=== PATIENT | female | born 1960 | race Caucasian/White ===

== ENCOUNTER 2019-02-11 11:28 | Inpatient (IN) ==
--- NOTE | 2019-02-11 12:42 | History & Physical Report ---
Date of Service February 11, 2019 Assessment & Plan (1) Chest pain: 58 y/o F sent to ED after having a positive stress test which was done for having exertional chest pain and dyspnea Exertional chest pain and dyspnea with positive stress test - keep on tele, - check troponin and trend - consult cardiology for [facility] - add aspirin. will need b sarahi and statin HTN - continue home dose losartan/HCTZ - 12.5/50mgs. Fatty liver - outpatient monitoring and lifestyle changes DVT proph - ambulation full code heart healthy diet (2) Positive cardiac stress test: (3) Fatty liver: (4) Sleep apnea: (5) Hypertension: History of Present Illness Chief Complaint: chest pain Primary Care Provider: Cely Duong MD 58 y/o F sent from cardiology office after having had a positive stress test associated with chest pain. Patient had been having chest tightness associated with shortness of breath with feeling of throat closing and arm hurting for few wks and so underwent stress test. Today at cardiology office - patient started to have chest pain while undergoing stress test and had positive EKG findings. Stress test was stopped and she was given SL nitroglycerine which relieved her chest pain. At the time of my exam - patient denied any chest pain, shortness of breath, diaphoresis, palpitation. Allergies Allergy/AdvReac Type Severity Reaction Status Date / Time lisinopril AdvReac Intermediate Cough Unverified 02/11/19 12:38 Home Medications Home Medications Medication Instructions Recorded Confirmed Type Alive Once Daily Women 50 Plus 1 tab PO QAM 02/11/19 02/11/19 History Heparin IV Low Dose *NO* Bolus 1 ea IV Q15H 1 Days #1 amp 02/11/19 Rx aspirin [Ecotrin Low Strength] 81 mg PO QAM 30 Days #30 tab 02/11/19 Rx atorvastatin 80 mg PO QAM 30 Days #60 tab 02/11/19 Rx garlic 2,000 mg PO DAILY 02/11/19 02/11/19 History losartan-hydrochlorothiazide 1 tab PO QAM 02/11/19 02/11/19 History metoprolol tartrate 25 mg PO BID 30 Days #60 tab 02/11/19 Rx omega 8-ytn-bzd-fish oil [Fish Oil] 1 cap PO QAM 02/11/19 02/11/19 History Past Med/Surg History Medical History (Updated 02/11/19 @ 12:43 by Cely Duong MD) Fatty liver Hypertension Sleep apnea Surgical History (Updated 02/11/19 @ 12:40 by Cely Duong MD) History of tonsillectomy S/P ACL repair Family History (Updated 02/11/19 @ 12:42 by Cely Duong MD) Mother Hypertension Father Prostate cancer Social History (Updated 02/11/19 @ 12:41 by Cely Duong MD) Preferred Language: Bel[place]an Communication Ability: Effective Anatomic Pathology Manager Required: No Beliefs That Will Affect Care: None marital status: Current Living Situation: Spouse and Family Feels Safe at Home: Yes Smoking Status: Never smoker Hx Alcohol Use: Yes Hx Substance Use: No Review of Systems Constitutional: no fever and no chills Eyes: no diplopia, no discharge and no tunnel vision Ear, Nose, Mouth, Throat: no ear pain, no nasal discharge, no mouth lesions and no dental pain Respiratory: no cough and no hemoptysis Cardiovascular: as per Subjective / HPI Gastrointestinal: no abdominal pain, no bloating and no nausea Genitourinary: no urinary frequency, no urinary incontinence and no decreased urination Musculoskeletal: no back pain and no radicular pain Integumentary: no rash Neurologic: no gait abnormality and no paralysis Psychiatric: no behavioral changes Endocrine: no polydipsia and no polyphagia Hematologic / Lymphatic: no coagulopathy Allergy / Immunological: no lip swelling, no tongue swelling and no cough Physical Exam Constitutional: WD/WN, vitals as above Eyes: PERRL, conjunctivae normal, anicteric sclerae ENMT: external ear and nose normal, oropharynx normal Neck: trachea midline, no thyromegaly Respiratory: normal respiratory effort, lungs clear to auscultation Cardiovascular: RRR, no murmur, no edema Gastrointestinal (Abdomen): normal bowel sounds, soft, nontender, no hepatosplenomegaly Musculoskeletal: no cyanosis or clubbing, extremities motor strength 5/5 Skin: no rashes, warm and dry Neurologic: patellar DTR's 2+ bilat, sensation intact Psychiatric: A+Ox3, euthymic affect Lymphatic: + cervical lymphadenopathy Results & Data Vital Signs (Past 12 Hours) Vital Signs Temp Pulse Resp BP Pulse Ox 02/11/19 11:25 36.7 C 79 14 161/84 H 98 02/11/19 11:20 98
[2019-02-11 13:25] LABS: Basophils # (auto) 0.06 K/uL (0-0.2); Basophils % (auto) 0.5 %; Eosinophils # (auto) 0.18 K/uL (0-0.5); Eosinophils % (auto) 1.6 %; Hematocrit (blood only) 44.8 % (37-47); Immature Granulocytes # (auto) 0.04 K/uL (0.00-0.02); Immature Granulocytes % (auto) 0.4 %; Lymphocytes # (auto) 2.38 K/uL (1.2-3.4); Lymphocytes % (auto) 21.3 %; Mean Corpuscular Hemoglobin 29.8 pg (25-34); Mean Corpuscular Hgb Conc 33.5 g/dL (32-36); Mean Corpuscular Volume 89.1 fL (80-100); Mean Platelet Volume 11.7 fL (7.4-10.4); Monocytes # (auto) 0.68 K/uL (0.11-0.59); Monocytes % (auto) 6.1 %; Neutrophils # (auto) 7.83 K/uL (1.4-6.5); Neutrophils % (auto) 70.1 %; Platelet Count 240 K/uL (130-400); RDW Coefficient of Variation 13.5 % (11.5-14.5); Red Blood Count 5.03 M/uL (4.2-5.4); White Blood Count 11.17 K/uL (4.8-10.8)
[2019-02-11 13:32] LABS: BUN Creatinine Ratio 14.5 (10-20); Calcium 9.1 mg/dl (8.5-10.1); Est GFR (African American) 68.3; Est GFR (Non-African American) 58.9; Potassium 3.8 mmol/L (3.5-5.1)
[2019-02-11] MEDS ORDERED: HydrALAZINE HCL 20 MG/ML VIAL IV STA (13:34)
[2019-02-11] MEDS ORDERED: HydrALAZINE HCL 20 MG/ML VIAL ONE (13:36)
[2019-02-11] MEDS: LOSARTAN POTASSIUM 50 MG TAB PO SCH (13:49)
--- NOTE | 2019-02-11 13:51 | Cardiology Consultation ---
Date of Consultation February 11, 2019 Assessment & Plan (1) Positive cardiac stress test: 2. Typical angina 3. Hypertension 4. Morbid obesity/obstructive sleep apnea Patient with typical angina and high risk risk stress test findings. Agree with proceeding with cardiac catheterization. Discussed risk, benefits, alternatives of procedure with patient and she is willing to proceed. Plan to perform via right radial artery. Further recommendations pending findings of angiography. In the interim please keep n.p.o.. Given p.o. losartan and IV hydralazine for hypertension. History of Present Illness History of Present Illness Mrs. Monroy is a very pleasant 58-year-old woman with a history of hypertension here today in the setting of abnormal stress test. Patient reports chest discomfort radiating up into her neck intermittently since November. Reports having approximately 5 such episodes all occurring during periods of stress or with exertion. Due to symptoms was referred for exercise stress echo with Dr. Valentin today. Early in test developed her prior chest pain with ST depressions global LV dysfunction with more notable hypokinesis in mid to apical anterior, septal and entire apex. Referred directly from cardiology office to ED due to high risk test. At present patient chest pain-free. Hypertensive with systolic blood pressures up into the 190s. Patient with no prior cardiac history. No family history of coronary disease. Lifelong non-smoker. Allergies Allergy/AdvReac Type Severity Reaction Status Date / Time lisinopril AdvReac Intermediate Cough Unverified 02/11/19 12:38 Home Medications Home Medications Medication Instructions Recorded Confirmed Type garlic 2,000 mg PO DAILY 02/11/19 02/11/19 History losartan-hydrochlorothiazide 1 tab PO QAM 02/11/19 02/11/19 History mv-mn-folic ac-vit K-herb 289 1 tab PO QAM 02/11/19 02/11/19 History [Alive Once Daily Women 50 Plus] omega 0-cyx-upp-fish oil [Fish Oil] 1 cap PO QAM 02/11/19 02/11/19 History Patient History Medical History (Updated 02/11/19 @ 12:43 by eCly Duong MD) Fatty liver Hypertension Sleep apnea Surgical History (Updated 02/11/19 @ 12:40 by Cely Duong MD) History of tonsillectomy S/P ACL repair Family History (Updated 02/11/19 @ 12:42 by Cely Duong MD) Mother Hypertension Father Prostate cancer Social History (Updated 02/11/19 @ 12:41 by Cely Duong MD) Preferred Language: Uzbek marital status: Feels Safe at Home: Yes Smoking Status: Never smoker Hx Alcohol Use: No Hx Substance Use: No Review of Systems Review of Systems: All systems reviewed & are unremarkable except as noted in HPI & below Physical Exam Physical Exam: General: Comfortable, no acute distress, obese HEENT: Sclerae anicteric, mucous membranes moist Lungs: Clear to auscultation bilaterally, no rhonchi or wheezes Cardiac: Regular rate and rhythm, no murmurs. No JVD. Abdomen: Soft, nontender, nondistended, positive bowel sounds. Extremities: Warm, well perfused, no edema. 2+ radial pulses Skin: No rashes or lesions. Neuro: Nonfocal Psych: Alert orient x3, normal affect and mood Results & Data Vital Signs (Past 12 Hours) Vital Signs Temp Pulse Pulse Resp BP BP Pulse Ox 02/11/19 13:17 18 195/126 H 95 02/11/19 13:00 79 22 187/115 H 99 02/11/19 11:25 98.1 F 79 14 161/84 H 98 02/11/19 11:20 98 PG Care Time/CCT Total # of Minutes Spent Total Time Spent with Patient: Total time spent is greater than 50% in coordin ation of care (as documented) at patient's floor/unit and/or counseling patient:
[2019-02-11] MEDS ORDERED: MIDAZOLAM HCL 1 MG/ML 2ML VIAL ONE (14:45)
[2019-02-11] MEDS ORDERED: NITROGLYCERIN/D5W 100MCG/ML 20ML SYR ONE (14:45)
[2019-02-11] MEDS ORDERED: HEPARIN (PORCINE) 1000 UNIT/ML 10 ML (CATH LAB USE ONLY) ONE (14:45)
[2019-02-11] MEDS ORDERED: NiCARDipine HCL INJ 2.5 MG/ML 10 ML AMP ONE (14:45)
[2019-02-11] MEDS ORDERED: fentaNYL citrate 100 MCG/2 ML VIAL ONE (14:45)
--- NOTE | 2019-02-11 15:29 | Post Anesthesia Assessment ---
Date of Service February 11, 2019 Post Sedation Assessment Vital Signs Temp Pulse Pulse Resp BP BP Pulse Ox 02/11/19 13:17 18 195/126 H 95 02/11/19 13:00 79 22 187/115 H 99 02/11/19 11:25 98.1 F 79 14 161/84 H 98 02/11/19 11:20 98 Recovery Score Activity: Moves 4 extremities Respiration: Deep Breath/Cough Circulation: +/-20% PreAnes Value Consciousness: Fully Awake Oxygen Saturation: O2 needed for >90% Discharge Sedation Level of Care: Fast Track Phase II Post Sedation Plan On clinical assessment, the patient appears to have tolerated the sedation without complications. Patient is recovering as anticipated. Patient will continue to be monitored by nursing and may be discharged when sedation discharge criteria are met per below protocol. Upon Completions of procedure up to 15 minutes continue every 5 minute vital signs and the P.A.R. score; then discharge to a Phase I or Fast Track to Phase II per the following guidelines: * Discharge Patient to appropriate Phase II area if PAR is 8 or greater or return to pre- procedure baseline. The post - procedure orders will be as directed. * If PAR score is less than 8 or not return to pre-procedure baseline then patient will follow Phase I monitoring till PAR is reached for Phase II. The Phase I may be done in procedure room or may call to secure a Phase I area. * If naloxone or flumazenil are used for reversal, hold in Phase I for continued monitoring from when last reversal dose was given for a minimum of 60 minutes or longer pending the nurse and/or physician discretion of patient condition before discharge to Phase II. Please call the Sedation Physician to re-evaluate and complete post-note for discharge to Phase II area. Do NOT discharge from procedure sedation or Phase 1 until post- sedation evalu ation note is complete by procedure /sedation MD Sedation Discharge Instructions to be given to the patient at discharge to home.
--- NOTE | 2019-02-11 15:35 | Cardiac Catheterization ---
[facility] Data: [employer] Cardiac Status Clinical evaluation leading to the procedure CAD Presenation: Unstable angina Anginal Classification: CCS III Heart Failure: No Cardiogenic Shock within 24 Hours: No Cardiac Arrest within 24 Hours: No Imaging Studies Past 6 Months: Yes Stress Studies Past 6 Months: Yes Stress Echocardiogram: Yes - Positive and Risk/Extent of Ischemia (High) Diagnostic Physicians Name: Real Price MD Closure Device Percutaneous Entry Location: Radial Closure Device: Radial Band Recommendations: CABG Intraprocedure Events Significant Disection: No Perforation: No Cardiac Cath Procedure Full Procedure Date February 11, 2019 Pre-Procedure Diagnosis Pre-Procedure Diagnosis: Acute Coronary Syndrome and Angina AUC Score AUC Score: 7 Post-Procedure Diagnosis Post-Procedure Diagnosis: Severe CAD and Normal Intracardiac Pressures Procedure(s) Performed Procedure(s) Performed: Coronary Angiography and Left Heart Cath Cloth Brushing And Sueding Supervisor Real Price MD Transportation Operations Manager(s) Madelin Estimated Blood Loss Estimated Blood Loss: 5 Medication(s) Medication(s): Fentanyl, Heparin, Lidocaine 1%, Nicardipine, Nitroglycerin and Versed Summary of Findings Indication: Accelerating angina, high risk stress test Access: 6 Fr slender right radial artery Catheters: [place] Findings: LM -80 to 90% mid focal stenosis LAD -medium caliber, 30% mid segment disease, distal luminal irregularities with sluggish flow to the apex Circumflex -medium caliber vessel, 80% mid to distal disease prior to medium caliber left PLB RCA -dominant, large caliber, 40% proximal disease. Large PDA without significant disease. LVEDP -11 Arterial Closure: TR band Summary: 1. Severe coronary artery disease -80 to 90% mid left main 80 to 90% mid to distal circumflex -40% proximal RCA 2. Normal intracardiac filling pressure Recommendations: Discussed with cardiac surgery at [facility]. We will transfer for CABG evaluation. Hemodynamics Rest Ao:: 96/48/78 Final Ao: 122/68/114 LV: 106/11 Recommendations Recommendations: CABG Specimens Specimens: None Radiation Exposure (mGy) 1190 Contrast (mls) 55 Fluids (cc crystalloids) Fluids (cc crystalloids): 80 Drains Drains: None Anesthesia Moderate Procedural Complication(s) None Disposition PCU I attest to the content of the Intraoperative Record and any orders documented therein. Any exceptions are noted below. [id number] Card Cath Procedure Codes Cardiac Catheterization Procedure 1: Cardiovascular Cath Procedures: 72430 Coronaries and LHC (+/-LV) Moderate Sedation Procedure 1: Sedation/Anesthesia: 45498 Mod Sedation by the same physician;Init15 Min Child Age 5 & Up PG Care Time/CCT Total # of Minutes Spent Total Time Spent with Patient: Total time spent is greater than 50% in coordination of care (as documented) at patient's floor/unit and/or counseling patient:
[2019-02-11] MEDS ORDERED: Heparin IV Low Dose *NO* Bolus IV SCH (15:52)
[2019-02-11] MEDS ORDERED: ACETAMINOPHEN 325 MG TAB PO PRN ×2 (15:52→16:11)
[2019-02-11] MEDS ORDERED: ONDANSETRON INJ 2 MG/ML 2 ML VIAL IV PRN ×2 (15:52→16:11)
[2019-02-11] MEDS ORDERED: SODIUM CHLORIDE 0.9% 1000ML 1,000 ML IV SCH (16:00)
[2019-02-11] MEDS ORDERED: MoRPHine SULFATE 2 MG/ML CARP IV PRN (16:11)
[2019-02-11] MEDS ORDERED: NITROGLYCERIN SL 0.4 MG/TAB TAB SL PRN (16:11)
[2019-02-11] MEDS ORDERED: LORazepam 0.5 MG TAB PO STA (16:12)
[2019-02-11] MEDS: ASPIRIN 81 MG ECTAB PO SCH (16:59)
[2019-02-11] MEDS: ATORVASTATIN 40 MG TAB PO SCH (16:59)
[2019-02-11] MEDS: HEPARIN SODIUM/DEXTROSE 25,000 UNITS/500 ML BAG IV SCH (17:33)
[2019-02-11] MEDS: METOPROLOL TARTRATE 25 MG TAB PO SCH (20:32)
[2019-02-11 22:47] LABS: Partial Thromboplastin Ratio 1.2; Partial Thromboplastin Time 31.2 Seconds (21.0-31.0)
[2019-02-12] MEDS ORDERED: HEPARIN IV BOLUS 4,500 UNITS in SYRINGE 0 ML IV ONE ×2 (00:45→09:30)
[2019-02-12 07:12] LABS: Partial Thromboplastin Ratio 1.5; Partial Thromboplastin Time 39.3 Seconds (21.0-31.0)
[2019-02-12] MEDS: LOSARTAN POTASSIUM 50 MG TAB PO SCH (08:27)
[2019-02-12] MEDS: ASPIRIN 81 MG ECTAB PO SCH (08:28)
[2019-02-12] MEDS: METOPROLOL TARTRATE 25 MG TAB PO SCH (08:28)
[2019-02-12] MEDS: ATORVASTATIN 40 MG TAB PO SCH (08:28)
[2019-02-12] MEDS ORDERED: LOSARTAN/HCTZ 50/12.5MG TAB PO SCH (09:00)
[2019-02-12] MEDS ORDERED: ASPIRIN 81 MG ECTAB PO SCH (09:00)
[2019-02-12 11:10] VITALS: BP 144/84; PULSE 74; TEMP 98.4; O2SAT 96
--- NOTE | 2019-02-12 11:32 | Discharge Summary ---
Date of Service February 12, 2019 Admission HPI Per Admitting Provider 58 y/o F sent from cardiology office after having had a positive stress test associated with chest pain. Patient had been having chest tightness associated with shortness of breath with feeling of throat closing and arm hurting for few wks and so underwent stress test. Today at cardiology office - patient started to have chest pain while undergoing stress test and had positive EKG findings. Stress test was stopped and she was given SL nitroglycerine which relieved her chest pain. At the time of my exam - patient denied any chest pain, shortness of breath, diaphoresis, palpitation. Principal Diagnosis Severe CAD Discharge Exam Constitutional WD/WN, vitals as above Respiratory normal respiratory effort, lungs clear to auscultation Cardiovascular RRR, no murmur, no edema Gastrointestinal (Abdomen) normal bowel sounds, soft, nontender, no hepatosplenomegaly Skin no rashes, warm and dry Discharge Data Allergies Allergy/AdvReac Type Severity Reaction Status Date / Time lisinopril AdvReac Intermediate Cough Unverified 02/11/19 12:38 Consultations 02/11/19 16:11 Consult Cardiology Routine Consult Cardiology Routine 02/11/19 16:29 Burn CD for patient Stat Procedures Performed Operation Date: 02/11/19 14:00 Actual Procedures p Cath, Left with Cors and Vent - Ezio Price MD s Cineradiography w/Routine Exam - Ezio Price MD Ordered Studies 02/11/19 14:30 CL Cath Imgs for PACS use only Routine Hospital Course (1) Chest pain: 58 y/o F sent to ED after having a positive stress test which was done for having exertional chest pain and dyspnea who underwent LHC on 02/11/19. Severe CAD s/p LHC 02/11/[address] Price - [facility] - -80 to 90% mid left main 80 to 90% mid to distal circumflex -40% proximal RCA - Kept on Tele overnight. Troponin came back negative. - added aspirin, b sarahi and statin. - [place] [facility] [place]. HTN - continue home dose losartan/HCTZ - 12.5/50mgs. Fatty liver - outpatient monitoring and lifestyle changes DVT proph - ambulation full code heart healthy diet (2) Positive cardiac stress test: (3) Fatty liver: (4) Sleep apnea: (5) Hypertension: Total Time Total Time Spent Total Time Spent (In Minutes): 35 min Discharge Plan Discharge Items Patient Disposition: Transfer Acute Care Hospital Reason For Visit: POSITIVE STRESS TEST WITH CHEST PAIN Discharge Diagnosis: Severe coronary artery disease Activity: Per Instructions section Activity Comment: bedrest while [place]route [place] [facility] [place]-emergency contact: Primary Care Provider Call non-emergency contact if: you have any medication questions Follow-up/Referrals: Cely Duong MD [Primary Care Provider] - Diet: Heart Healthy Addtl Attending Provider Instructions: follow with PCP after [place] [facility] [place] Pending Studies at Discharge: No Stand-Alone Forms: My [facility] Skilled Items Patient informed of condition?: Yes DNR: No Discharge Level of Care: Other Communicable Disease: No Discharge Prognosis: Stable Lines: Peripheral IV Urinary Catheter: No Medications and DC Order Prescriptions: New atorvastatin 40 mg Tablet 80 mg PO QAM 30 Days Qty: 60 RF: 0 aspirin [Ecotrin Low Strength] 81 mg Tablet,Delayed Release (Dr/Ec) 81 mg PO QAM 30 Days Qty: 30 RF: 0 Heparin Iv Low Dose *No* Bolus 1 ea IV Q15H 1 Days Qty: 1 RF: 0 metoprolol tartrate 25 mg Tablet 25 mg PO BID 30 Days Qty: 60 RF: 0 Continued losartan-hydrochlorothiazide 50-12.5 mg tablet 1 tab PO QAM RF: 0 garlic Tablet 2,000 mg PO DAILY RF: 0 omega 0-apd-csl-fish oil [Fish Oil] 1,000 mg (120 mg-180 mg) Capsule 1 cap PO QAM RF: 0 Alive Once Daily Women 50 Plus 800-100 mcg Tablet 1 tab PO QAM RF: 0 Discharge Orders: Discharge Order (Routine); Ordered 02/11/19 Ordered By: Cely Duong Admission Data Admit Date/Time: 02/11/19 13:05 Attending Provider: Cely Duong Admit Provider: Cely Duong Primary Care Provider: Cely Duong Other Providers: Alverto Valentin ; Ezio Price Other Interventions: Discharge Summary Assessment (RN) Last Done: 02/12/19 10:49 DC Date/Time DO NOT enter until pt leaves facility: 02/12/19 13:49
[2019-02-12] MEDS: HEPARIN SODIUM/DEXTROSE 25,000 UNITS/500 ML BAG IV SCH (13:46)
== END 2019-02-12 13:49 | disposition short-term general hospital (02) | DRG 287 ==
LOC: ED 11:28 → CC 13:04 → 2S 13:05

== ENCOUNTER 2024-12-16 05:33 | Observation (INO) ==
--- NOTE | 2024-12-08 13:03 | Anesthesiology Consultation ---
Date of Service December 08, 2024 Assessment & Plan (1) Encounter for pre-operative examination: Chart Review Chart Review: Acceptable Risk for Surgery and Patient NOT seen in Pre Admission Testing - Check BSG AM DOS - Patient informed by nursing to stop Ozempic 7 days prior to surgery. Last dose of Ozempic scheduled 12/03/24. Will be off Ozempic x 13 days prior to DOS on 12/16/24 - Patient is NOT an ideal OPJ candidate (currently 23 hour obs) -Infectious Disease screening: Per PAT nursing assessment on 12/08/24. No known infectious disease contacts in past 10 days or current infectious disease symptoms. No recent travel outside the country. Cardiology visit 10/02/23= "... routine yearly cardiology follow up.... Coronary artery disease. Status post 4 vessel CABG surgery... No anginal or anginal equivalent symptoms at this time... Dyslipidemia. Good control of LDL on maximum dose of atorvastatin... Occasional mild nosebleeds on antiplatelet therapy with low-dose aspirin. No other bleeding complaints. Elevated BMI. Suspect this is the main etiology for her dyspnea with prolonged or strenuous exertion... Follow-up visit with me in 1 year" (Spoke with patient 12/08/24- patient denies any new cardiac symptoms (no chest pain, chest pressure, new onset SOB); just have chronic mild JACKSON - stable x years; discussed with Dr Marcos- patient can proceed as scheduled. Did recommend to patient that she make routine follow up with cardio post op) History Surgery Operation Date: 12/16/24 10:40 Proposed Procedures p Left Total Knee Arthroplasty - Tre Soriano MD Height/Weight Height: 5 ft 5 in Weight: 129.274 kg Allergies Allergy/AdvReac Type Severity Reaction Status Date / Time lisinopril AdvReac Intermediate Cough Verified 12/08/24 12:17 Medications Home Medications Medication Instructions Recorded Confirmed Last Taken aspirin 81 mg tablet,delayed 81 mg PO HS 03/23/19 12/08/24 05/11/23 release ascorbic acid (vitamin C) 500 mg 500 mg PO HS 05/02/22 12/08/24 05/11/23 tablet (Vitamin C) cholecalciferol (vitamin D3) 125 125 mcg PO HS 05/02/22 12/08/24 05/11/23 mcg (5,000 unit) tablet (Vitamin D3) omega-3 fatty acids 1,000 mg 1,000 mg PO HS 05/12/23 12/08/24 05/11/23 capsule atorvastatin 80 mg tablet 80 mg PO HS #90 tabs 05/05/24 12/08/24 Unknown garlic 300 mg capsule 300 mg PO DAILY 06/29/24 12/08/24 Unknown melatonin 10 mg capsule 10 mg PO HS PRN Sleep 06/29/24 12/08/24 Unknown Ozempic 0.25 mg or 0.5 mg (2 mg/3 0.25 mg (0.368 mL) subcut Q7D #3 mL 08/03/24 12/08/24 Unknown mL) subcutaneous pen injector (semaglutide) losartan 25 mg tablet 25 mg PO HS #90 tabs 08/26/24 12/08/24 Unknown metoprolol succinate 50 mg 50 mg PO HS #90 tabs 08/26/24 12/08/24 Unknown tablet,extended release 24 hr Balance Of Nature 1 tab PO DAILY 12/08/24 12/08/24 Unknown Past Medical History Medical History CAD (coronary artery disease) s/p CABG x 4 2019; follows w/ Dr Herbert Dyslipidemia Fatty liver HTN (hypertension) RIC (obstructive sleep apnea) no device Type 2 diabetes mellitus Past Family History Family History Mother Hypertension Parkinsons disease Father Prostate cancer Other No family history of adverse response to anesthesia Denies family history of Ovarian cancer Myocardial infarction Breast cancer Colorectal cancer Past Surgical History Surgical History H/O wisdom tooth extraction History of cardiac cath 2019>[place] (NO STENTS) History of colonoscopy History of tonsillectomy Nausea and vomiting after administration of anesthetic agent S/P ACL repair X 2 *LEFT SIDE S/P CABG x 4 CABG x4 February 16 2019 at . [facility]; SVG-obtuse marginal; SVG-lad 1st diagonal; SVG-ramus. FOLLOWS WITH DR. HERBERT Social History Smoking Status: Never smoker Do You Dip or Chew Tobacco: No Hx Alcohol Use: Yes Alcohol type: wine and hard liquor alcohol intake frequency: holidays/special occasions only Hx Substance Use: No substance use type: does not use Lab Results Anesthesia Preop Results Results Anesthesia Widget: WBC 12.23 K/ul (4.8-10.8) H 12/03/24 Hgb 14.4 g/dl (12.0-16.0) 12/03/24 Hct 42.5 % (37.0-47.0) 12/03/24 Plt 237 K/uL (130-400) 12/03/24 Na 140 mmol/L (136-145) 12/03/24 K 3.8 mmol/L (3.5-5.1) 12/03/24 Cl 108 mmol/L (98-107) H 12/03/24 CO2 24 mmol/L (21-32) 12/03/24 BUN 18 mg/dl (6-23) 12/03/24 Creat 0.89 mg/dl (0.6-1.2) 12/03/24 Glucose Level 104 mg/dl (70-99(Fasting)) H 12/03/24 PT 10.4 Seconds (9.0-12.0) 12/03/24 PTT 29 Seconds (21-31) 12/03/24 INR 1.0 (0.9-1.1) 12/03/24 HA1c 6.3 % (4.5-5.6) H 12/03/24 Blood Type O Positive 12/03/24 Antibody Screen NEGATIVE 12/03/24 Testing Electrocardiogram Date: 12/04/24 Findings: + NSR @ (77bpm) Rightward axis Chest X-Ray Date: 12/04/24 Findings: + NAD FINDINGS: Stable CABG. Stable cardiomegaly without pulmonary vascular congest ion. No consolidation or pleural effusion Echocardiogram Date: 04/16/19 EF 55-60% Septal hypokinesis Mild cLVH Grade I diastolic dysfunction No significant valvular abnormalities Cardiac Catheterization Date: 02/11/19 LM -80 to 90% mid focal stenosis LAD -medium caliber, 30% mid segment disease, distal luminal irregularities with sluggish flow to the apex Circumflex -medium caliber vessel, 80% mid to distal disease prior to medium caliber left PLB RCA -dominant, large caliber, 40% proximal disease. Large PDA without significant disease. Summary: 1. Severe coronary artery disease -80 to 90% mid left main 80 to 90% mid to distal circumflex -40% proximal RCA 2. Normal intracardiac filling pressure Recommendations: Discussed with cardiac surgery at [facility]. We will transfer for CABG evaluation.
[2024-12-16] MEDS: LR 500ML BOLUS, THEN 15ML/HR IV SCH (06:00)
[2024-12-16] MEDS: LR 60ML/HR IV SCH (06:09)
[2024-12-16] MEDS: dexAMETHasone**PF** 10 MG/ML VIAL IV SCH (06:31)
[2024-12-16] MEDS: FAMOTIDINE 20 MG TAB PO SCH (06:31)
[2024-12-16] MEDS ORDERED: ROPIVACAINE 0.5% 5 MG/ML 30 ML VIAL ONE (06:31)
[2024-12-16] MEDS: CeleBREX 200 MG CAP PO SCH (06:31)
[2024-12-16] MEDS ORDERED: BUPIVACAINE 0.5 % 5 MG/1 ML PF 10ML VIAL ONE (06:31)
[2024-12-16] MEDS: METOCLOPRAMIDE HCL 10 MG TABLET PO SCH (06:31)
[2024-12-16] MEDS: ACETAMINOPHEN 500 MG TAB PO SCH ×2 (06:31→14:28)
[2024-12-16] MEDS ORDERED: PROPOFOL IV EMULSION 10 MG/ML 20 ML VIAL IV ONE (06:41)
[2024-12-16] MEDS ORDERED: MIDAZOLAM HCL 1 MG/ML 2ML VIAL ONE (06:42)
[2024-12-16] MEDS ORDERED: KETAMINE HCL 10MG/ML SYR ONE (06:42)
--- NOTE | 2024-12-16 06:45 | History & Physical Bridge Note ---
Date of Service December 16, 2024 History & Physical Bridge Note I have examined the patient, reviewed the History & Physical and in the interval since the performance of the History & Physical I have noted the following changes of clinical significance: no changes noted
[2024-12-16] MEDS: ceFAZolin 3000MG 3,000 MG/72.5 ML BAG IV SCH (07:00)
[2024-12-16] MEDS ORDERED: HYDROmorphone INJ 2 MG/ML SYR/VIAL IV PRN (07:05)
[2024-12-16] MEDS ORDERED: ATROPINE SULFATE 0.1 MG/ML 10ML SYR IV PRN (07:05)
[2024-12-16] MEDS ORDERED: PROMETHAZINE HCL 6.25 MG in SODIUM CHLORIDE 0.9% 50 ML IV PRN (07:05)
[2024-12-16] MEDS: ORTHO JOINT ANESTHETIC ONE (07:39)
[2024-12-16] MEDS: VANCOMYCIN HCL 1000MG/20ML VIAL ONE (08:18)
[2024-12-16] MEDS: ROPIV 0.5% 246mg, Ketorolac 30mg, EPINEPHrine 0.5mg in NSS INFIL SCH (08:33)
[2024-12-16] MEDS ORDERED: PROPOFOL IV EMULSION 10 MG/ML 100 ML VIAL IV ONE (08:52)
--- NOTE | 2024-12-16 09:19 | Operative Report ---
PG Post Operative Report Pre & Post Diagnosis Operation Date: 12/16/24 07:00 Pre-Op Diagnosis: Left Knee Degenerative Joint Disease Post-Op Diagnosis: Left Knee Degenerative Joint Disease I identified the patient and participated in the time-out.: Yes Procedure Operation Date: 12/16/24 07:00 Actual Procedures p Left Total Knee Arthroplasty(Left) - Tre Soriano MD Surgeon Tre Soriano MD Wildlife Photographer Randy Monroy PA-C Estimated Blood Loss 50 Findings Consistent with Post-Op Diagnosis Specimens Left knee sent for pathology Anesthesia Type Spinal MAC Complications none Disposition Accompanied Patient To Recovery: No Indications The patient is a 64-year-old female with a long history of left knee problems. She underwent a multiple surgeries on this left knee including ACL reconstruction many years ago. Over time she developed increased pain discomfort and stiffness in the knee. She got advanced left knee arthritis. She failed conservative measures. She elected proceed with total knee arthroplasty. Description of Procedure Operative implants consist of: 1. Biomet Vanguard size 70 left posterior stabilized femoral component. 2. Biomet size 75 tibial tray. 3. 10 mm posterior stabilized polyethylene insert. 4. 34 x 8-1/2 all poly patella. The patient was taken to the op room, identified, placed on the operating table in the supine position. All contact areas were appropriately padded. IV antibiotics were provided by anesthesia team. A spinal anesthetic and adductor canal block had been provided in the holding area. A Fishman catheter was placed in sterile fashion. A left phytate was then placed. The left lower extremity was then prepped and draped in usual sterile fashion. The left leg was elevated and exsanguinated with use of an Esmarch and mathew rniquet placed at 300 mmHg. An anterior approach to the left knee was then performed to a longitudinal incision centered over the patella. Sharp dissection was Through subcutaneous tissue down the extensor mechanism. A medial parapatellar arthrotomy incision was made. Some subperiosteal dissection was carried out medially. The fat pad was dissected for release patella tendon. The patella was subluxated laterally. The lateral patellofemoral ligament was released. The knee was flexed. The osteophytes were taken off distal femur. The remnants of the ACL and PCL were released from the distal femur and the tibia subluxate anteriorly. The external tibial LYMErix then placed on the anterior face the tibia and adjusted 14 mm medially. The proximal tibial cut was made remove out of millimeter bone from the most deficient aspect medial tibial plateau. Some osteophytes taken off medially. The tibia was sized to a size 75. Attention drawn to the femur. The distal femur was entered with a sharp drill. Intramedullary canal was suction. A left 5 degree valgus cutting guide was placed. The distal femoral cutting block was pinned in place. Distal femoral cut was made to take an additional 3 mm of bone off distal femur. The femur was then sized to a size 70. The AP cutting block was pinned parallel to the epicondylar axis which was 5 degrees of external rotation. Anterior cut, anterior chamfer, posterior cut, posterior chamfer cuts were made. The box cutting guide was then placed and just slightly lateral. The box cut was made. The knee was flexed. The remnants of the medial and lateral menisci were excised. The osteophytes taken off the posterior aspect of femur. A trial femoral component was placed. The tibial tray was pinned in Va external rotation and the drill and stem punch used great defect in the proximal tibia for the tibial tray. The knee was then trialed and the 10 mm insert fit most appropriately. Attention drawn the patella. The patella was cleaned of all soft tissue. Patella thickness measured 25 mm in thickness and was cut down to 15. I left a little bit thick as that was not sure whether she had a graft from this or not from the past. The patella was then sized to a size 34. The lug holes were drilled for the 34 patella. The lateral osteophyte was removed. Patella button was placed. Knee was taken through range of motion and the patella tracked nicely with no thumbs test. Attention was then drawn toward placing the permanent components. All trial components were removed. A bone plug was placed into distal femur limit blood loss. A double batch of Palacos G cement was mixed. A Biomet Vanguard size 70 left posterior stabilized femoral component, size 75 tibial tray, a 10 mm posterior stabilized polyethylene insert, and a 34 x 8-1/2 all poly patella then cemented in place. The knee was brought out into full extension till cement hardened. Final cement check was then performed. The pericapsular tissues were injected with a total of 100 cc of Ortho mix. The patient did receive 1 g of tranexamic acid. The tourniquet was then let down for final tourniquet time of 66 minutes. Hemostasis surgery was electrocautery. Extensor Meclomen closed combination 1 PDS suture #1 Vicryl suture in a [id number] fashion. The extensor mechanism was checked and found to be intact. Subcutaneous tissue was then closed with 2-0 Dexon suture in a buried interrupted fashion skin was closed skin ruthy. The leg was then cleaned and dried and a sterile dressing Prince Xeroform, 4 fours, sterile cast padding and Boom bandage were applied. The patient then transferred to the recovery room in stable condition. Patient tolerated procedure well and there were no complications. Porfirio, my physician executive administrative assistant, was present for the entire procedure. His assistance was required for proper patient positioning, prepping and draping, surgical exposure, retraction, perform the technical details of the operation, placement implants, closure of the incision site, placement of postoperative sterile bandage. I attest to the content of the Intraoperative Record and any orders documented therein. Any exceptions are noted below.
--- NOTE | 2024-12-16 09:31 | XRay Report ---
XR knee LT 1 or 2V routine CLINICAL HISTORY: Surgical Post Op COMPARISON: None FINDINGS: There are postsurgical changes of a total left knee arthroplasty and patellar resurfacing. Note also is made of an anterior tibial stable and screw. There is also a metallic fixation device w ithin the proximal femur. This may relate to a prior ACL repair. There are overlying skin ruthy. Th ere is gas within the soft tissues consistent with recent surgery. Vascular clips are present adjacen t to the medial aspect of the proximal tibia IMPRESSION: Postsurgical changes of a total left knee arthroplasty. ACT 112: Negative or not required by law. Electronically signed by: Evens Renee M.D. 12/16/2024 9:30 AM
[2024-12-16] MEDS ORDERED: METOCLOPRAMIDE HCL INJ 5 MG/ML 2 ML VIAL IV PRN (10:22)
[2024-12-16] MEDS ORDERED: ALUMINUM/MAGNESIUM SUSP 30 ML UDC PO PRN (10:22)
[2024-12-16] MEDS ORDERED: ONDANSETRON INJ 2 MG/ML 2 ML VIAL IV PRN (10:22)
[2024-12-16] MEDS ORDERED: NALOXONE HCL 0.4 MG/1 ML VIAL/CARP IV PRN (10:22)
[2024-12-16] MEDS ORDERED: MAGNESIUM HYDROXIDE SUSP 30 ML UDC PO PRN (10:22)
[2024-12-16] MEDS ORDERED: diphenhydrAMINE Capsule 25 MG CAP PO PRN (10:22)
[2024-12-16] MEDS ORDERED: MELATONIN 3 MG TAB PO PRN (10:35)
[2024-12-16] MEDS: SODIUM CHLORIDE 0.9% 1,000 ML IV SCH (11:02)
[2024-12-16] MEDS: KETOROLAC 30 MG/ML VIAL IV SCH (11:07)
[2024-12-16] MEDS: HYDROmorphone INJ 0.5 MG/0.5 ML SYR IV PRN (12:16)
[2024-12-16] MEDS: TRANEXAMIC ACID / 0.7% NACL 1,000 MG/100 ML BAG IV SCH (14:28)
[2024-12-16] MEDS: ASCORBIC ACID 500 MG TAB PO SCH (16:22)
[2024-12-16 19:11] VITALS: RESP 18
[2024-12-16] MEDS ORDERED: SENNA 8.6 MG TAB PO SCH (21:00)
[2024-12-16] MEDS: DOCUSATE SODIUM 100 MG CAP PO SCH (21:06)
[2024-12-16] MEDS: ATORVASTATIN 40 MG TAB PO SCH (21:07)
[2024-12-16] MEDS: ASPIRIN 81 MG ECTAB PO SCH (21:08)
[2024-12-16] MEDS: CHOLECALCIFEROL 125 MCG (5,000 UNITS) TAB PO SCH (21:09)
[2024-12-16] MEDS: OMEGA-3 (PURIFIED FISH OIL) 1 GM CAP PO SCH (21:10)
[2024-12-16] MEDS: LOSARTAN POTASSIUM 25 MG TAB PO SCH (21:10)
[2024-12-16] MEDS: METOPROLOL SUCC 50MG EXT REL TAB PO SCH (21:11)
[2024-12-16] MEDS: SENNA 8.6 MG TAB PO SCH (21:13)
[2024-12-17] MEDS: MULTIVITAMIN TAB PO SCH (07:31)
[2024-12-17] MEDS: dexAMETHasone 10 MG in SYRINGE 0 ML IV SCH (07:32)
[2024-12-17 07:57] LABS: Hematocrit (blood only) 36.5 % (37.0-47.0); Hemoglobin 11.9 g/dl (12.0-16.0); Mean Corpuscular Hemoglobin 28.1 pg (25.0-34.0); Mean Corpuscular Volume 86.1 fL (80.0-100.0); Platelet Count 233 K/uL (130-400); RDW Standard Deviation 44.0 fL (36.4-46.3); Red Blood Count 4.24 M/uL (4.20-5.40); White Blood Count 18.55 K/ul (4.8-10.8)
[2024-12-17 08:01] VITALS: BP 182/77; PULSE 73; TEMP 98.2; O2SAT 97
[2024-12-17 08:15] LABS: Anion Gap 8.0 (3-11); Blood Urea Nitrogen 18.0 mg/dl (6-23); Calcium 8.9 mg/dl (8.6-10.3); Carbon Dioxide 25.0 mmol/L (21-32); Chloride 106.0 mmol/L (98-107); Creatinine Clr Calc Pharmacy 78.8 ml/min; Glucose 129.0 mg/dl (70-99(Fasting)); Potassium 3.9 mmol/L (3.5-5.1); Sodium 139.0 mmol/L (136-145)
--- NOTE | 2024-12-17 08:30 | Orthopedic Progress Note ---
Date of Service December 17, 2024 Assessment & Plan (1) Status post total left knee replacement: * Continue Current Treatment * Disposition: Home with home pT * Daily treatment: Physical Therapy/ Occupational Therapy per protocol * Weight bearing status: WBAT * Continue to monitor for ABLA * Pain control * DVT prophylaxis, ASA/Eliquis * Office/hospital f/u 2 weeks for progress check and staple/suture removal * Plan for discharge today pending PT/OT clearance Subjective .Active Problems: S/p left total knee arthroplasty POD 1 64 y/o female s/p left total knee arthroplasty with Dr. Soriano 12/16/24. Doing well overall, pain managed and improved function. Denies fever/chills, chest pain/SOB, nausea/vomiting. Otherwise no complaints. Review of Systems All systems reviewed & are unremarkable except as noted in HPI & below. Physical Exam . * General: Alert and oriented, no acute distress * Constitutional: well-developed, well-nourished. * Respiratory: Normal respiratory effort, no distress * Gastrointestinal: No tenderness to palpation, no rigidity or guarding. * Skin: No rash or lesion. * Neurologic: Grossly normal * Musculoskeletal: Left knee surgical dressing clean, dry and in place, not removed for exam. Otherwise no obvious deformity or overlying skin changes RLE. Diffuse TTP distal thigh and knee region. Otherwise no specific tenderness of proximal thigh, lower leg, foot/ankle. AROM knee flexion 60 degrees. AROM foot/ankle intact. Sensation intact plantar/dorsal foot. Brisk capillary refill. Results & Data Results & Data Laboratory Results . Laboratory Results - last 24 hr 12/16/24 12/17/24 09:19 07:28 WBC 18.55 H RBC 4.24 Hgb 11.9 L Hct 36.5 L MCV 86.1 MCH 28.1 MCHC 32.6 RDW Std Deviation 44.0 RDW Coeff of Kwame 14.1 Plt Count 233 MPV 12.0 Sodium 139 Potassium 3.9 Chloride 106 Carbon Dioxide 25 Anion Gap 8 BUN 18 Creatinine 0.99 Est Cr Clr Drug Dosing 78.8 eGFR 64.07 BUN/Creatinine Ratio 18.2 Glucose 129 H POC Glucose 144 H Calcium 8.9 Diagnostic Findings Knee X-Ray 12/16/24 09:11 XR knee LT 1 or 2V routine CLINICAL HISTORY: Surgical Post Op COMPARISON: None FINDINGS: There are postsurgical changes of a total left knee arthroplasty and patellar resurfacing. Note also is made of an anterior tibial stable and screw. There is also a metallic fixation device within the proximal femur. This may relate to a prior ACL repair. There are overlying skin ruhty. There is gas w ithin the soft tissues consistent with recent surgery. Vascular clips are present adjacent to the medial aspect of the proximal tibia IMPRESSION: Postsurgical changes of a total left knee arthroplasty. ACT 112: Negative or not required by law. Electronically signed by: Evens Renee M.D. 12/16/2024 9:30 AM . PG Care Time/CCT Total # of Minutes Spent Total Time Spent with Patient: Total time spent is greater than 50% in coordination of care (as documented) at patient's floor/unit and/or counseling patient: Coding Level of Care Code 90567 Post Operative Follow-Up Diagnoses Status post total left knee replacement Z96.652
[2024-12-17] MEDS ORDERED: GARLIC 300 MG PO SCH (09:00)
[2024-12-17] MEDS ORDERED: BALANCE OF NATURE PO SCH (09:00)
--- NOTE | 2024-12-18 15:04 | Anesthesiology Progress Note ---
Date of Service December 17, 2024 Anesthesia Post Procedure Pain Intensity Left Knee: Pain Intensity: 2 Transfer of Care Handoff Completed per policy Notes Mental Status: alert / awake / arousable and participated in evaluation Nausea / Vomiting: adequately controlled Pain: adequately controlled Airway Patency, RR, SpO2: stable & adequate BP & HR: stable & adequate Hydration State: stable & adequate Neuraxial Anesthesia: was administered and sensory block is resolving Anesthetic Complications: no major complications apparent and Pt Satisfied with anesthetic care
--- NOTE | 2024-12-21 15:11 | Anesthesiology Progress Note ---
Date of Service December 16, 2024 Anesthesia Post Procedure Pain Intensity Left Knee: Pain Intensity: 2 Transfer of Care Handoff Completed per policy Notes Mental Status: alert / awake / arousable and participated in evaluation Nausea / Vomiting: adequately controlled Pain: adequately controlled Airway Patency, RR, SpO2: stable & adequate BP & HR: stable & adequate Hydration State: stable & adequate Neuraxial Anesthesia: was administered and sensory block is resolving Anesthetic Complications: no major complications apparent and Pt Satisfied with anesthetic care
== END 2024-12-17 10:18 | disposition home health service (06) ==
LOC: ASU 05:33 → 3N 05:33